=== PATIENT | male | born 1995 | race African-American/Black ===

== ENCOUNTER 2021-09-17 16:22 | Emergency (ER) | payer OTHER, BC, MEDICAID ==
[2021-09-17] MEDS ORDERED: Acetaminophen 500 MG TAB ONE (17:48)
[2021-09-17] MEDS ORDERED: Ibuprofen 800 MG TAB ONE (17:48)
== END 2021-09-17 17:54 | disposition home or self-care (01) ==
LOC: MADERS 16:22
DX: S20.211A Contusion of right front wall of thorax, initial encounter (principal); V43.52XA Car driver injured in collision with other type car in traffic accident, initial encounter; F17.210 Nicotine dependence, cigarettes, uncomplicated